=== PATIENT | female | born 1955 | race Caucasian/White ===

== ENCOUNTER → 2020-12-25 | Outpatient (CLI) | payer MEDICARE | LOC: MC.RAD 11:14 | DX: Z12.31 Encounter for screening mammogram for malignant neoplasm of breast (principal) ==

== ENCOUNTER 2022-01-09 09:35 | Emergency (ER) | payer MEDICARE, OTHER ==
[~2022-01-09] VITALS: Ht 172.7 cm; Wt 90.9 kg
[2022-01-09 09:44] VITALS: TEMP 97.8
[2022-01-09] MEDS ORDERED: FLAGYL500 MG PO (09:49)
[2022-01-09] MEDS ORDERED: CIPRO 500MG TA500 MG PO (09:49)
[2022-01-09] MEDS ORDERED: HCTZ 25MG TAB25 MG PO (09:49)
[2022-01-09] MEDS ORDERED: PRINIVIL20 MG PO (09:49)
[2022-01-09] MEDS ORDERED: HARD NAILS 2.51 CAP PO (09:50)
[2022-01-09] MEDS ORDERED: ALLEGRA 180MG180 MG PO (09:50)
[2022-01-09] MEDS ORDERED: B-12 500 MCG PO (09:51)
[2022-01-09 10:25] LABS: BASO % 0.5 % (0.0-2.0); EOS # 0.3 K/mm3 (0.0-0.7); EOS % 3.5 % (0.0-4.0); GRAN # 6.2 K/mm3 (1.4-6.5); GRAN % 74.4 % (42.2-75.2); HEMATOCRIT 41.1 % (37.0-47.0); HEMOGLOBIN 14.4 g/dl (12.5-16.0); LYMPH # 1.2 K/mm3 (1.2-3.4); MEAN CELL VOLUME 86 fl (80.0-100.0); MEAN CORPUSCULAR HEMOGLOBIN 30 pg (27-31); MEAN CORPUSCULAR HGB CONC 35 g/dl (33.0-37.0); MEAN PLATELET VOLUME 11.5 fl (7.4-10.4); MONO # 0.6 K/mm3 (0.1-0.6); MONO % 7.4 % (1.7-9.3); PLATELET COUNT 334 K/mm3 (130-400); REDCELL DISTRIBUTION WIDTH-CV 12.4 % (11.5-14.5)
[2022-01-09 10:39] LABS: ALBUMIN 3.9 gm/dL (3.4-4.8); BILIRUBIN,TOTAL 0.8 mg/dL (0.2-1.2); C-REACTIVE PROTEIN 1.87 mg/dL (0.00-0.50); CREATININE, serum 0.88 mg/dL (0.57-1.11); POTASSIUM 3.3 mmol/L (3.5-4.5); TOTAL PROTEIN 7.5 gm/dL (6.2-8.1)
[2022-01-09 11:11] LABS: COLLECTION METHOD CLEAN CATCH
[2022-01-09 11:16] LABS: MUCOUS Present (NOT PRESENT); PH 6 (5-8); URINE APPEARANCE Clear (CLEAR/HAZY); URINE BACTERIA None Seen /hpf (NONE SEEN); URINE BILIRUBIN Negative (NEGATIVE); URINE BLOOD Negative (NEGATIVE); URINE COLOR Yellow (YELLOW); URINE GLUCOSE Negative (NEGATIVE); URINE KETONE 1+ (NEGATIVE); URINE LEUKOCYTE ESTERASE Trace (NEGATIVE); URINE NITRATE Negative (NEGATIVE); URINE PROTEIN(semi-quant) Negative (NEGATIVE); URINE RBC 0-2 /hpf (0-2); URINE UROBILINOGEN Negative (NEGATIVE)
[2022-01-09 11:30] VITALS: BP 128/67; PULSE 71
[2022-01-09] MEDS ORDERED: ZOFRAN ODT4 MG PO (11:31)
== END 2022-01-09 11:49 | disposition home or self-care (01) ==
LOC: COL.ER 09:35
PROVIDERS: Nurse Practitioner Primary Care
DX: K57.92 Diverticulitis of intestine, part unspecified, without perforation or abscess without bleeding (principal); E87.6 Hypokalemia; Z90.49 Acquired absence of other specified parts of digestive tract; Z88.1 Allergy status to other antibiotic agents
CPT/HCPCS: J2405; J7030

== ENCOUNTER 2022-04-18 14:46 | Emergency (ER) | payer MEDICARE, OTHER ==
[~2022-04-18] VITALS: Ht 172.7 cm; Wt 86.4 kg
[~2022-04-18 14:46] MED LIST: ALLEGRA 180MG180 MG PO; B-12 500 MCG PO; CIPRO 500MG TA500 MG PO; FLAGYL500 MG PO; HARD NAILS 2.51 CAP PO; HCTZ 25MG TAB25 MG PO; PRINIVIL20 MG PO; ZOFRAN ODT4 MG PO
[2022-04-18 14:59] VITALS: TEMP 98.6
[2022-04-18 16:05] LABS: BASO % 0.4 % (0.0-2.0); EOS # 0.2 K/mm3 (0.0-0.7); GRAN # 6.6 K/mm3 (1.4-6.5); GRAN % 77.9 % (42.2-75.2); HEMATOCRIT 37.2 % (37.0-47.0); HEMOGLOBIN 12.3 g/dl (12.5-16.0); LYMPH # 1.1 K/mm3 (1.2-3.4); LYMPH % 13.4 % (20.0-51.0); MEAN CELL VOLUME 91 fl (80.0-100.0); MEAN CORPUSCULAR HEMOGLOBIN 30 pg (27-31); MEAN CORPUSCULAR HGB CONC 33 g/dl (33.0-37.0); MONO # 0.5 K/mm3 (0.1-0.6); MONO % 6.1 % (1.7-9.3); PLATELET COUNT 277 K/mm3 (130-400); RED BLOOD COUNT 4.07 M/mm3 (4.10-5.30); REDCELL DISTRIBUTION WIDTH-CV 13.3 % (11.5-14.5)
[2022-04-18 16:21] LABS: ALANINE AMINOTRANSFERASE 39 U/L (0-55); ALBUMIN 3.6 gm/dL (3.4-4.8); ALKALINE PHOSPHATASE 120 U/L (40-150); ANION GAP 11 mmol/L (7-16); AST,SGOT 31 U/L (5-34); BILIRUBIN,TOTAL 0.5 mg/dL (0.2-1.2); BLOOD UREA NITROGEN 12 mg/dL (10-20); CALCIUM 9.3 mg/dL (8.4-10.2); CARBON DIOXIDE 23 mmol/L (23-31); CHLORIDE 103 mmol/L (98-107); CREATININE, serum 0.83 mg/dL (0.57-1.11); GLUCOSE 94 mg/dL (70-99); POTASSIUM 4.4 mmol/L (3.5-4.5); SODIUM 137 mmol/L (136-145); TOTAL PROTEIN 6.9 gm/dL (6.2-8.1)
[2022-04-18 16:28] LABS: TROPONIN-I < 0.010 ng/mL (0.00-0.033)
[2022-04-18 17:33] VITALS: BP 156/76; PULSE 61
== END 2022-04-18 17:34 | disposition home or self-care (01) ==
LOC: COL.ER 14:46
PROVIDERS: Physician Assistant
DX: R05.9 Cough, unspecified (principal)

== ENCOUNTER → 2022-05-06 | Outpatient (CLI) | payer MEDICARE, OTHER | LOC: COL.RAD 10:25 | DX: I12.9 Hypertensive chronic kidney disease with stage 1 through stage 4 chronic kidney disease, or unspecified chronic kidney disease (principal); N18.9 Chronic kidney disease, unspecified; K76.0 Fatty (change of) liver, not elsewhere classified; Z90.49 Acquired absence of other specified parts of digestive tract | CPT/HCPCS: Q9967 ==

== ENCOUNTER 2022-06-24 10:09 | Day surgery (SDC) | payer MEDICARE, OTHER ==
[~2022-06-24] VITALS: Ht 172.7 cm; Wt 82.2 kg
[2022-06-24] MEDS ORDERED: COZAAR 25MG25 MG/TAB PO (13:04)
[2022-06-24] MEDS ORDERED: COREG 3.123.125 MG/T PO (13:05)
[2022-06-24] MEDS ORDERED: TAGAMET400 MG PO (13:06)
[2022-06-24] MEDS ORDERED: LEXAPRO 10MG10 MG PO (13:06)
[2022-06-24] MEDS ORDERED: AIRDUO RESPICL1 EAC1 IH (13:08)
[2022-06-24 14:25] VITALS: BP 1315/70; PULSE 52; TEMP 97
[2022-06-24 14:40] VITALS: BP 145/79; PULSE 49
[2022-06-24 15:05] VITALS: BP 147/75; PULSE 53
[2022-06-24 15:34] VITALS: BP 134/83; PULSE 54; TEMP 97.4
== END 2022-06-24 15:15 | disposition home or self-care (01) ==
LOC: SDCO 10:09
DX: D12.3 Benign neoplasm of transverse colon (principal); D12.5 Benign neoplasm of sigmoid colon; K59.00 Constipation, unspecified; K64.0 First degree hemorrhoids; K29.50 Unspecified chronic gastritis without bleeding; I34.0 Nonrheumatic mitral (valve) insufficiency; R19.8 Other specified symptoms and signs involving the digestive system and abdomen; K21.9 Gastro-esophageal reflux disease without esophagitis; Z83.79 Family history of other diseases of the digestive system; Z79.899 Other long term (current) drug therapy; Z87.59 Personal history of other complications of pregnancy, childbirth and the puerperium; Z86.19 Personal history of other infectious and parasitic diseases
CPT/HCPCS: J2704; J7120

== ENCOUNTER → 2024-06-10 | Outpatient (CLI) | payer MEDICARE, OTHER ==
[~2024-06-10] MED LIST changes: +AIRDUO RESPICL1 EAC1 IH; +COREG 3.123.125 MG/T PO; +COZAAR 25MG25 MG/TAB PO; +Iohexol 300 - 100 ML VIAL IV ONE; +LEXAPRO 10MG10 MG PO; +NS 100 ML IV SCH; +TAGAMET400 MG PO
== END ==
LOC: COL.RAD 12:41
DX: K57.30 Diverticulosis of large intestine without perforation or abscess without bleeding (principal); R79.89 Other specified abnormal findings of blood chemistry
CPT/HCPCS: Q9967